=== PATIENT | male | born 1940 | race Caucasian/White ===

== ENCOUNTER → 2019-09-30 | Outpatient (CLI) | payer MEDICARE ==
[~2019-09-30] MED LIST: REGADENOSON 0.4 MG/5 ML SYRINGE ONE
== END | disposition home or self-care (01) ==
LOC: CFH 07:28
PROVIDERS: ATTEND Internal Medicine Cardiovascular Disease
DX: I08.3 Combined rheumatic disorders of mitral, aortic and tricuspid valves (principal); I25.89 Other forms of chronic ischemic heart disease; I11.9 Hypertensive heart disease without heart failure; I47.2 Ventricular tachycardia
CPT/HCPCS: 78452; 93017; 93306; 93356; A9502; J2785

== ENCOUNTER 2019-10-27 11:36 | Day surgery (SDC) | payer MEDICARE ==
[~2019-10-27] VITALS: Ht 175.3 cm; Wt 89.6 kg
[2019-10-27] MEDS ORDERED: LIDOCAINE-MPF 1%, 5ML ONE (11:50)
[2019-10-27] MEDS ORDERED: SODIUM CHLORIDE 0.9% 1,000 ML IV SCH ×2 (11:50→13:02)
[2019-10-27] MEDS ORDERED: TICAGRELOR 90 MG TABLET ONE (11:50)
[2019-10-27] MEDS ORDERED: HEPARIN 1,000 UNITS/ML, 10ML ONE (11:50)
[2019-10-27] MEDS ORDERED: MIDAZOLAM 1 MG/ML, 5ML ONE (11:50)
[2019-10-27] MEDS ORDERED: BIVALIRUDIN 250 MG ONE (11:50)
[2019-10-27] MEDS ORDERED: VERAPAMIL 2.5 MG/ML, 2ML ONE (11:50)
[2019-10-27] MEDS ORDERED: FENTANYL PF 100 MCG/2ML ONE (11:50)
[2019-10-27 11:54] VITALS: BP 163/73
[2019-10-27] MEDS ORDERED: CHOL10003 PO (12:14)
[2019-10-27] MEDS ORDERED: LOVA20TA2 PO (12:14)
[2019-10-27] MEDS ORDERED: AMLO-150 PO (12:14)
[2019-10-27] MEDS ORDERED: ALLO100T30 PO (12:14)
[2019-10-27] MEDS ORDERED: RESV1TAB2 PO (12:14)
[2019-10-27] MEDS ORDERED: prevagen PO (12:14)
[2019-10-27] MEDS ORDERED: UBID100C41 PO (12:14)
[2019-10-27] MEDS ORDERED: MULT-316 PO (12:14)
[2019-10-27] MEDS ORDERED: MAGN400T36 PO (12:14)
[2019-10-27] MEDS ORDERED: FINA5TAB4 PO (12:14)
[2019-10-27] MEDS ORDERED: LISI-170 PO (12:14)
[2019-10-27] MEDS ORDERED: VIT1TABL89 PO (12:14)
[2019-10-27] MEDS ORDERED: PLEASE ENTER HEIGHT AND WEIGHT MC SCH (12:30)
== END 2019-10-27 14:54 | disposition home or self-care (01) ==
LOC: CACL 11:36
PROVIDERS: ATTEND Internal Medicine Cardiovascular Disease
DX: R93.1 Abnormal findings on diagnostic imaging of heart and coronary circulation (principal); I25.10 Atherosclerotic heart disease of native coronary artery without angina pectoris; I25.82 Chronic total occlusion of coronary artery; I25.83 Coronary atherosclerosis due to lipid rich plaque; I47.2 Ventricular tachycardia; I10 Essential (primary) hypertension; Z88.1 Allergy status to other antibiotic agents; Z79.899 Other long term (current) drug therapy
CPT/HCPCS: 93458; 99156; 99157; C1769; C1894; J1644; J2250; J3010; Q9967; J0583